=== PATIENT | male | born 1955 | race Caucasian/White ===

== ENCOUNTER 2016-10-22 14:06 | Emergency (ER) | payer OTHER ==
[~2016-10-22] VITALS: Ht 185.4 cm; Wt 95.3 kg
--- NOTE | ~2016-10-22 | EKG ---
[place] [address] [email or web address] [place] [address] ELECTROCARDIOGRAM REPORT Name: AMY STOKES TOBY Room #: DEP Anthony#: [id number] Admission: 10/22/16 Attend Phys: Discharge: 10/22/16 Date of : 55 Report #: [id number] THIS REPORT FOR: //name// [facility] ED Test Date: 2016-10-22 Test Time: 14:07:03 Pat Name: AMY STOKES Department: Room: Gender: Vending Machine Technician: TERESA : 1955 Requested By: Alexandra Price Order Number: [id number] MD: Chaz Garcia Measurements Intervals [place] Rate: 89 P: 67 NV: 162 QRS: 76 QRSD: 104 T: 42 QT: 371 QTc: 452 Interpretive Statements Sinus rhythm No significant abnormality No previous ECG available for comparison Electronically Signed On 10-23-2016 8:38:53 CDT by Chaz Garcia [email or web address] <ELECTRONICALLY SIGNED> By: Chaz Garcia MD, [facility] 10/23/16 0838 [id number] Chaz Garcia MD, FACC /EPI
[2016-10-22 14:51] LABS: ABSOLUTE NEUTROPHILS 2.8 thou/uL (1.4-8.2); BASOPHILS 1.2 % (0.0-2.0); EOSINOPHILS 1.9 % (0.0-3.0); HEMATOCRIT 48.6 % (42.0-52.0); HEMOGLOBIN 16.3 gm/dL (14.0-18.0); LYMPHOCYTES 36.1 % (24.0-44.0); MCH 29.6 pg (26.0-34.0); MCHC 33.7 g/dL (28.0-37.0); MONOCYTES 9.9 % (1.0-8.0); PLATELET COUNT 162 thou/uL (150-400); POLYS 50.9 % (36.0-66.0); RBC 5.52 mil/uL (4.50-6.00); RDW 13.4 % (10.5-14.5); WBC 5.5 thou/uL (4.0-11.0)
[2016-10-22 14:53] LABS: MANUAL DIFF NO
[2016-10-22 14:59] LABS: CREATININE 0.9 mg/dL (0.7-1.3); POTASSIUM 3.6 mmol/L (3.5-5.1)
[2016-10-22 15:04] LABS: URINE BILIRUBIN NEGATIVE (Negative); URINE BLOOD NEGATIVE (Negative); URINE COLOR YELLOW; URINE GLUCOSE-RANDOM* NEGATIVE (Negative); URINE KETONES 1+ (Negative); URINE LEUKOCYTES-REFLEX NEGATIVE (Negative); URINE PROTEIN (DIPSTICK) NEGATIVE (Negative); URINE SPECIFIC GRAVITY <= 1.005 (1.003-1.035); URINE UROBILINOGEN 0.2 E.U./dl (0.2-1.0)
[2016-10-22 15:13] LABS: AMP/METHAMP Negative (Negative); BARBITURATES Negative (Negative); BENZODIAZEPINES Negative (Negative); COCAINE Negative (Negative); METHADONE Negative (Negative); OPIATES Negative (Negative); PCP Negative (Negative); THC Negative (Negative)
[2016-10-22] MEDS ORDERED: ATIVAN1 MG PO (21:17)
[2016-10-22 21:39] VITALS: BP 128/88
== END 2016-10-22 21:41 | disposition home or self-care (01) ==
LOC: ER 14:06
PROVIDERS: Emergency Medicine
DX: R45.1 Restlessness and agitation (principal); G47.8 Other sleep disorders; Z90.49 Acquired absence of other specified parts of digestive tract; F17.210 Nicotine dependence, cigarettes, uncomplicated; F10.99 Alcohol use, unspecified with unspecified alcohol-induced disorder